=== PATIENT | female | born 1990 | race American Indian/Alaskan Native ===

== ENCOUNTER 2016-06-08 19:49 | Inpatient (IN) | payer OTHER ==
[2016-06-08 21:13] LABS: Basophils % (Auto) 0.7 % (0.0-1.8); Eosinophils % (Auto) 2.9 % (0.0-4.3); Hematocrit 33.8 % (30.3-42.9); Hemoglobin 10.9 gm/dl (10.1-14.3); Mean Corpuscular HGB Conc 32 % (30-34); Mean Corpuscular Hemoglobin 28 pg (28-32); Mean Corpuscular Volume 86 fl (79-97); Platelet Count 255 K/mm3 (140-440); Red Blood Count 3.94 M/mm3 (3.65-5.03); Red Cell Distribution Width 13.8 % (13.2-15.2); White Blood Count 5.7 K/mm3 (4.5-11.0)
[2016-06-08 21:15] LABS: Anion Gap 17 mmol/L; Blood Urea Nitrogen 14 mg/dL (7-17); Calcium 8.7 mg/dL (8.4-10.2); Carbon Dioxide 26 mmol/L (22-30); Chloride 85.1 mmol/L (98-107); Potassium 4.2 mmol/L (3.6-5.0); Sodium 124 mmol/L (137-145)
[2016-06-08 21:37] LABS: Bacteria,Urine 1+ /HPF (Negative); Bilirubin,Urine NEG (Negative); Blood,Urine MOD (Negative); Ketones,Urine NEG (Negative); Leukocyte Esterase,Urine LG (Negative); Mucus,Urine FEW /HPF; Nitrite,Urine NEG (Negative); Urobilinogen,Urine < 2.0 mg/dL (<2.0)
[2016-06-08 21:37] LABS: Glucose 800 mg/dL (65-100)
[2016-06-08 21:38] LABS: WBC,Urine > 182.0 /HPF (0.0-6.0)
[2016-06-08] MEDS ORDERED: ZOFRAN IV ONE (21:56)
[2016-06-08] MEDS ORDERED: D50W (25GM) IV PRN (21:56)
[2016-06-08] MEDS ORDERED: NACL 0.9% 1000 ML 1,000 ML IV ONE ×2 (21:56)
[2016-06-08] MEDS ORDERED: ROCEPHIN/NS 1 GM/50 ML 50 ML IV ONE (21:58)
[2016-06-08] MEDS ORDERED: PROTONIX IV ONE (22:09)
[2016-06-08] MEDS ORDERED: NORMODYNE IV ONE (22:09)
[2016-06-08] MEDS ORDERED: MORPHINE IV ONE (22:09)
--- NOTE | 2016-06-08 22:12 | Emergency Department Report ---
ED Abdominal Pain HPI - General Chief Complaint: Hyperglycemia Stated Complaint: ABD PAIN Time Seen by Provider: 06/08/16 21:54 Source: patient, EMS, old records reviewed (no previous ED visit) Mode of arrival: Wheelchair Limitations: No Limitations - History of Present Illness Initial Comments: 26-year-old female with a past medical history of asthma, diabetes, acid reflux and hypertension presents to the hospital complains of generalized body aches, nausea, vomiting, and diarrhea. Patient states she has been feeling sick since March and has had intermittent hospitalizations and does not have a primary care doctor. Patient states exacerbation of symptoms today. Vomiting times one which was mostly bloody. She complains of chronic diarrhea since March with greater than 10 episodes of loose stools daily. Patient denies melena or hematochezia. 10/10 generalized aching intermittent shakes without documented fever. Moderate epigastric pain described as sharp, constant, worse with palpation. No alleviating factors reported. Patient has increased urination, increased thirst, but denies dysuria. Patient has been compliant with her insulin but did not take her blood pressure medication this morning. Patient also complains of chronic bilateral lower extremity edema since March. Severity scale (0 -10): 10 - Related Data Home Medications Medication Instructions Recorded Confirmed Last Taken Gabapentin [Neurontin] 600 mg PO Q8H 06/08/16 06/08/16 Unknown Insulin Aspart [Novolog Flexpen] 30 unit SQ QAM 06/08/16 06/08/16 Unknown Insulin Lispro [HumaLOG VIAL] 100 unit SUB-Q QHS 06/08/16 06/08/16 Unknown Allergies Allergy/AdvReac Type Severity Reaction Status Date / Time vancomycin Allergy Unknown Verified 06/08/16 20:33 ED Review of Systems ROS: Stated complaint: ABD PAIN Other details as noted in HPI Comment: All other systems reviewed and negative Other: Constitutional: No fevers Eyes: No eye pain visual changes ENT: No ear pain or throat pain Neck: Denies pain Respiratory: Denies cough wheezing shortness of breath Cardiovascular: Denies chest pain, palpitations, syncope GI: As per HPI : As per HPI Musculoskeletal: Chronic leg edema Skin: Denies rash, lesions, erythema Neurologic: Denies headache, numbness, weakness Psychiatric: Denies suicidal ideation, hallucinations ED Past Medical Hx - Past Medical History Previous Medical History?: Yes Hx Hypertension: Yes Hx Diabetes: Yes Additional medical history: gatroparesis - Surgical History Past Surgical History?: No - Social History Smoking Status: Never Smoker Substance Use Type: None - Medications Home Medications: Home Medications Medication Instructions Recorded Confirmed Last Taken Type Gabapentin [Neurontin] 600 mg PO Q8H 06/08/16 06/08/16 Unknown History Insulin Aspart [Novolog Flexpen] 30 unit SQ QAM 06/08/16 06/08/16 Unknown History Insulin Lispro [HumaLOG VIAL] 100 unit SUB-Q QHS 06/08/16 06/08/16 Unknown History ED Physical Exam - General Limitations: No Limitations - Other Other exam information: General: No limitations, patient is alert in no acute distress Head exam: Atraumatic, normocephalic Eyes exam: Normal appearance him a nonicteric ENT: Dry mucous membrane Neck exam: Normal inspection, full range of motion, no meningismus nontender Respiratory exam: Clear to auscultation bilateral, no wheezes, rales, crackles Cardiovascular: Tachycardic regular rhythm Abdomen: Soft, nondistended, epigastric tenderness, with normal bowel sounds, no rebound, or guarding Extremity: Full range of motion normal inspection no deformity, bilateral 2+ lower extremity edema. Superficial skin ulceration to left great toe without warmth or erythema. No calf tenderness Back: Normal Inspection, full range of motion, no tenderness Neurologic: Alert, oriented x3, cranial nerves intact, no motor or sensory deficit Psychiatric: normal affect, normal mood Skin: Warm, dry, intact ED Course Vital Signs 06/08/16 06/08/16 06/08/16 20:00 21:44 21:58 Temperature 98.5 F Pulse Rate 110 H 109 H Respiratory 20 28 H 20 Rate Blood Pressure 158/105 Blood Pressure [Left] O2 Sat by Pulse 100 100 100 Oximetry 06/08/16 06/08/16 22:00 22:04 Temperature 98.2 F Pulse Rate 111 H 110 H Respiratory 13 18 Rate Blood Pressure 173/112 Blood Pressure 173/112 [Left] O2 Sat by Pulse 100 100 Oximetry - Reevaluation(s) Reevaluation #1: 06/08/16 22:17 Insulin bolus, normal saline, insulin drip, morphine, Zofran, and Protonix ordered in the ED ED Medical Decision Making - Lab Data Result diagrams: 06/08/16 20:46 06/08/16 20:53 Lab Results 06/08/16 06/08/16 06/08/16 Range/Units 20:00 20:46 20:46 WBC 5.7 (4.5-11.0) K/mm3 RBC 3.94 (3.65-5.03) M/mm3 Hgb 10.9 (10.1-14.3) gm/dl Hct 33.8 (30.3-42.9) % MCV 86 (79-97) fl MCH 28 (28-32) pg MCHC 32 (30-34) % RDW 13.8 (13.2-15.2) % Plt Count 255 (140-440) K/mm3 Lymph % (Auto) 25.3 (13.4-35.0) % [place] % (Auto) 9.5 H (0.0-7.3) % Eos % (Auto) 2.9 (0.0-4.3) % Baso % (Auto) 0.7 (0.0-1.8) % Lymph # 1.4 (1.2-5.4) K/mm3 [place] # 0.5 (0.0-0.8) K/mm3 Eos # 0.2 (0.0-0.4) K/mm3 Baso # 0.0 (0.0-0.1) K/mm3 Seg Neutrophils % 61.6 (40.0-70.0) % Seg Neutrophils # 3.5 (1.8-7.7) K/mm3 VBG pH (7.320-7.420) Sodium (137-145) mmol/L Potassium (3.6-5.0) mmol/L Chloride (98-107) mmol/L Carbon Dioxide (22-30) mmol/L Anion Gap mmol/L BUN (7-17) mg/dL Creatinine (0.7-1.2) mg/dL Estimated GFR ml/min BUN/Creatinine Ratio % Glucose (65-100) mg/dL POC Glucose > 500 H (70-105) Calcium (8.4-10.2) mg/dL HCG, Qual Negative (Negative) Urine Color (Yellow) Urine Turbidity (Clear) Urine pH (5.0-7.0) Ur Specific [place] (1.003-1.030) Urine Protein (Negative) mg/dL Urine Glucose (UA) (Negative) mg/dL Urine Ketones (Negative) mg/dL Urine Blood (Negative) Urine Nitrite (Negative) Urine Bilirubin (Negative) Urine Urobilinogen (<2.0) mg/dL Ur Leukocyte Esterase (Negative) Urine WBC (Auto) (0.0-6.0) /HPF Urine RBC (Auto) (0.0-6.0) /HPF Urine Bacteria (Auto) (Negative) /HPF Urine Mucus /HPF Urine Yeast (Budding) /HPF Ketones (0.2-2.8) mg/dL 06/08/16 06/08/16 06/08/16 Range/Units 20:53 20:53 21:18 WBC (4.5-11.0) K/mm3 RBC (3.65-5.03) M/mm3 Hgb (10.1-14.3) gm/dl Hct (30.3-42.9) % MCV (79-97) fl MCH (28-32) pg MCHC (30-34) % RDW (13.2-15.2) % Plt Count (140-440) K/mm3 Lymph % (Auto) (13.4-35.0) % [place] % (Auto) (0.0-7.3) % Eos % (Auto) (0.0-4.3) % Baso % (Auto) (0.0-1.8) % Lymph # (1.2-5.4) K/mm3 [place] # (0.0-0.8) K/mm3 Eos # (0.0-0.4) K/mm3 Baso # (0.0-0.1) K/mm3 Seg Neutrophils % (40.0-70.0) % Seg Neutrophils # (1.8-7.7) K/mm3 VBG pH 7.376 (7.320-7.420) Sodium 124 L (137-145) mmol/L Potassium 4.2 (3.6-5.0) mmol/L Chloride 85.1 L (98-107) mmol/L Carbon Dioxide 26 (22-30) mmol/L Anion Gap 17 mmol/L BUN 14 (7-17) mg/dL Creatinine 0.8 (0.7-1.2) mg/dL Estimated GFR > 60 ml/min BUN/Creatinine Ratio 17.50 % Glucose 800 H* (65-100) mg/dL POC Glucose (70-105) Calcium 8.7 (8.4-10.2) mg/dL HCG, Qual (Negative) Urine Color Yellow (Yellow) Urine Turbidity Cloudy (Clear) Urine pH 6.0 (5.0-7.0) Ur Specific [place] 1.024 (1.003-1.030) Urine Protein 100 mg/dl (Negative) mg/dL Urine Glucose (UA) >=500 (Negative) mg/dL Urine Ketones Neg (Negative) mg/dL Urine Blood Mod (Negative) Urine Nitrite Neg (Negative) Urine Bilirubin Neg (Negative) Urine Urobilinogen < 2.0 (<2.0) mg/dL Ur Leukocyte Esterase Lg (Negative) Urine WBC (Auto) > 182.0 H (0.0-6.0) /HPF Urine RBC (Auto) 25.0 (0.0-6.0) /HPF Urine Bacteria (Auto) 1+ (Negative) /HPF Urine Mucus Few /HPF Urine Yeast (Budding) 3+ /HPF Ketones 5.0 H (0.2-2.8) mg/dL - Medical Decision Making Patient has epigastric tenderness and positive UTI. Treated symptomatically and insulin initiated. Although not completely DKA glucose is poorly controlled and patient has poor by mouth tolerance at this time. We'll admit for further treatment. - Differential Diagnosis gastroparesis, gastritis, reflux, pancreatitis, hepatitis Critical Care Time: No Critical care attestation.: If time is entered above; I have spent that time in minutes in the direct care of this critically ill patient, excluding procedure time. ED Disposition Clinical Impression: Hyperglycemia due to type 1 diabetes mellitus, Gastroparesis, Edema of both legs UTI (urinary tract infection) Qualifiers: Urinary tract infection type: acute cystitis HTN (hypertension) Qualifiers: Hypertension type: essential hypertension Qualified Code(s): I10 - Essential ( primary) hypertension Vomiting Qualifiers: Vomiting type: hematemesis Nausea presence: with nausea Qualified Code(s): K92.0 - Hematemesis Disposition: OP ADMITTED IP TO THIS HOSP Is pt being admited?: Yes Condition: Stable Time of Disposition: 22:11 (Dr. Herndon/hosp)
[2016-06-08 22:19] LABS: Alanine Aminotransferase 14 units/L (7-56); Albumin 3.1 g/dL (3.9-5); Albumin/Globulin Ratio 0.7 %; Alkaline Phosphatase 93 units/L (35-129); Bilirubin,Total 0.2 mg/dL (0.1-1.2); Lipase 24 units/L (13-60); Total Protein 7.5 g/dL (6.3-8.2)
[2016-06-08 22:22] LABS: Bilirubin,Direct < 0.2 mg/dL (0-0.2)
[2016-06-08] MEDS: NovoLIN R 100 UNITS in NACL 0.9% 99 ML IV SCH (23:00)
[2016-06-09] MEDS ORDERED: LASIX IV ONE (00:02)
[2016-06-09] MEDS ORDERED: APRESOLINE IV PRN (00:03)
[2016-06-09] MEDS ORDERED: LASIX ONE (00:51)
--- NOTE | 2016-06-09 00:54 | History and Physical Report ---
History of Present Illness Date of examination: 06/09/16 Date of admission: 06/09/16 00:03 History of present illness: 26-year-old woman with a history of hypertension, diabetes, gastroparesis, asthma, GERD noncompliant with medication comes emergency room with complaints of diffuse body aches, nausea vomiting. She stated that her body is swollen 2 months, also complaining of shortness of breath, dyspnea on exertion and PND. Also complaining of increase in urination, thirst and dysuria. Patient states she takes her antihypertensive once a week, no clear reason verbalized. She ran out of her diabetic medications times a few days, restarted this morning Patient denies chest pain, palpitation, cough, abdominal pain, hematochezia, frequency, focal weakness, dysarthria, fever chills, polydipsia polyuria, hot or cold intolerance, easy bruisability, or rash or bleeding from mucosal membrane, rhinorrhea, epistaxis, earache, tinnitus, blurry vision, eye discharge , anxiety, depression. Other review of systems negative PAST SURGICAL HISTORY: None SOCIAL HISTORY: Denies alcohol, tobacco, drugs FAMILY HISTORY: Diabetes Medications and Allergies Allergies Allergy/AdvReac Type Severity Reaction Status Date / Time vancomycin Allergy Unknown Verified 06/08/16 20:33 Home Medications Medication Instructions Recorded Confirmed Last Taken Type Gabapentin [Neurontin] 600 mg PO Q8H 06/08/16 06/08/16 Unknown History Insulin Aspart [Novolog Flexpen] 30 unit SQ QAM 06/08/16 06/08/16 Unknown History Insulin Lispro [HumaLOG VIAL] 100 unit SUB-Q QHS 06/08/16 06/08/16 Unknown History Active Meds: Active Medications Dextrose (D50w (25gm)) 0 ml IV PRN PRN PRN Reason: Hypoglycemia Hydralazine HCl (Apresoline) 5 mg IV Q6H PRN PRN Reason: Hypertension Insulin Human Regular 100 (units/ Sodium Chloride) 100 mls @ 1 mls/hr IV TITR DEANNE; 1 UNITS/HR PRN Reason: Protocol Last Titration: 06/09/16 00:05 Dose: 8 units/hr Exam - Physical Exam Narrative exam: Gen. appearance: Patient lying in bed, no apparent distress HEENT: Normocephalic, atraumatic, pupils equally round and reactive to light, extraocular movement intact, and no sclericterus,. No JVD or thyromegaly or nodule,neck supple, no carotid bruit ,mucous membranes moist, no exudate or erythema Heart: S1, S2, regular rate and rhythm Lungs: Mild crackles bilaterally, breathing comfortable Abdomen: Positive bowel sounds, nontender, nondistended, no organomegaly Extremity: 2+edema, no cyanosis, clubbing Skin: No rash, nodules, warm, dry Neuro: Oriented 3, cranial nerves II-12 intact, speech is fluent, motor and sensory intact - Constitutional Vitals: Temp Pulse Resp BP Pulse Ox 98.6 F 111 H 18 180/113 100 06/08/16 23:36 06/08/16 22:50 06/08/16 22:04 06/08/16 22:50 06/08/16 22:04 Results - Labs CBC & Chem 7: 06/08/16 20:46 06/09/16 23:51 - Imaging and Cardiology EKG: image reviewed (nsr, 80) Assessment and Plan HONK Edema, shortness of breath, rule out CHF Hypertension uncontrolled GERD Asthma Gastroparesis Admit to medicine Continue insulin drip, check chemistry and fingersticks, consult critical care Hold IV fluids, given IV Lasix, check echo Start IV hydralazine as needed for blood pressure control Check hemoglobin A1c, start DVT prophylaxis
[2016-06-09 00:55] LABS: BUN/Creatinine Ratio 18.75; Blood Urea Nitrogen 15 mg/dL (7-17); Calcium 8.8 mg/dL (8.4-10.2); Carbon Dioxide 24 mmol/L (22-30); Chloride 94.2 mmol/L (98-107); Glucose 475 mg/dL (65-100); Magnesium 1.8 mg/dL (1.7-2.3); Potassium 3.2 mmol/L (3.6-5.0); Sodium 133 mmol/L (137-145)
[2016-06-09 01:32] LABS: Anion Gap 18 mmol/L
[2016-06-09] MEDS ORDERED: ZOFRAN IV PRN (01:40)
[2016-06-09] MEDS ORDERED: PERCOCET 5/325 PO PRN (01:40)
[2016-06-09] MEDS ORDERED: ALUM-MAG HYDROX-SIMETH 200-200-20MG/5ML PO PRN (01:40)
[2016-06-09] MEDS ORDERED: TYLENOL PO PRN (01:40)
[2016-06-09] MEDS ORDERED: DULCOLAX PR PRN (01:40)
[2016-06-09] MEDS ORDERED: MILK OF MAGNESIA PO PRN (01:40)
[2016-06-09] MEDS ORDERED: D50W (25GM) IV PRN (01:40)
[2016-06-09] MEDS ORDERED: ROCEPHIN/NS 1 GM/50 ML 50 ML IV ONE (02:00)
--- NOTE | 2016-06-09 02:05 | Admit Criteria Form ---
Admission Criteria Documentation: DIABETES Clinical Indications for Admission to Inpatient Care (Place 'X' for any and all applicable criteria): Admission is indicated by presence of ALL (if I & II) or ANY ONE (if III or IV) of the following (1)(2)(3)(4): [ ]I. Diabetes is uncontrolled as indicated by ANY ONE of the following: [ ]a) Diabetic ketoacidosis as indicated by ALL of the following (8): [ ]i) Hyperglycemia (eg, plasma glucose greater than 200 mg/ dL (11.1 mmol/L)) [ ]ii) Acidosis (eg, arterial pH less than 7.30, serum bicarbonate level less than 15 mEq/L (mmol/L)) [ ]iii) Moderate ketonuria or ketonemia [ ]b) Hyperglycemic hyperosmolar state as indicated by ALL of the following(9)(10): [ ]i) Neurologic dysfunction (eg, stupor, coma, hemiparesis , seizure)(13) [ ]ii) Plasma glucose greater than 600 mg/dL (33.3 mmol/L) [ ]iii) Serum osmolality greater than 320 mOsm/kg (mmol/kg) [ ]c) Severe signs or symptoms secondary to hyperglycemia indicated by ANY ONE of the following: [ ]i) Altered mental status(10) [ ]ii) Significant hypovolemia or dehydration [ ]iii) Intractable nausea or vomiting [ ]iv) Unexplained fever or severe infection [ ]v) Severe electrolyte abnormality (eg, hypokalemia, hyperkalemia, hypernatremia) [ ]II. Management at other levels of care (Also use Diabetes: Observation Care as appropriate) is not feasible because of ANY ONE of the following: [ ]a) Condition was not adequately corrected with treatment at other levels of care. [ ]b) Treatment at other levels of care is not appropriate because of condition severity (eg, hyperosmolar coma). [X ]III. Contraindications and/or Inappropriate clinical situations for Observational Care in patients with Diabetes, when ANY ONE of the following is required: [ ]a) Patient require specific diagnostic workup or therapeutic intervention 22 [ X]b) Patient with abnormal vital signs or altered mental status 23 [ ]IV. General contraindications and/or Inappropriate clinical situations for Observational Care in patients with Diabetes, when ANY ONE of the following is required: [ ]a) Prediction of prolongation of LOS based on ANY ONE of the following may be considered as a contraindication for observational care 2, 3, 4, 5, 6, 7, 8, 9, 10, 11 [ ]i) Age > 65 yrs. [ ]ii) Patient arriving by ambulance [ ]iii) Patient with high acuity [ ]iv) Patient requiring vital sign monitoring [ ]v) Patient on IV medication [ ]b) Systolic blood pressures 180mmHg 3,12 [ ]c) Patient with altered mental status including delirium and other alteration of consciousness, (3) [ ]d) Patient whose discharge disposition will be to a usp home or rehabilitation home should not be managed in Emergency Department Observation Unit. CMS rule requires 3 days hospital stay before such placement.3,13 [ ]e) Patient with failure to thrive due to broad array of etiologies 3,16,17 [ ]f) Inability to ambulate 3,14 Extended stay beyond goal length of stay may be needed for(3)(20): [ ]a) Treatment of precipitating causes [ ]b) Development of hypoglycemia [ ]c) Complications of treatment [ ]d) Complications of decompensated diabetes (eg, acute gastric dilatation, persistent metabolic or neurologic derangement) [ ]e) Active Comorbidities [ ]f) Older patients( 65 years or older) The original its learning content created by its learning has been revised. The portions of the content which have been revised are identified through the use of italic text or in bold,and [facility] has neither reviewed nor approved the modified material. All other unmodified content is copyright [email or web address]. Please see references footnoted in the original [email or web address] edition 2016
[2016-06-09] MEDS: NovoLIN R 100 UNITS in NACL 0.9% 99 ML IV SCH ×4 (03:17→06:17)
[2016-06-09 03:20] LABS: BUN/Creatinine Ratio 18.75; Blood Urea Nitrogen 15 mg/dL (7-17); Calcium 8.9 mg/dL (8.4-10.2); Carbon Dioxide 27 mmol/L (22-30); Glucose 286 mg/dL (65-100); Potassium 3.3 mmol/L (3.6-5.0); Sodium 135 mmol/L (137-145)
[2016-06-09 03:30] LABS: Anion Gap 15 mmol/L
[2016-06-09] MEDS ORDERED: K-DUR PO ONE (04:28)
[2016-06-09] MEDS ORDERED: NovoLIN R 100 UNITS in NACL 0.9% 99 ML IV SCH (05:00)
--- NOTE | 2016-06-09 08:19 | Progress Note ---
Assessment and Plan Assessment and plan: --Hyperosmolar diabetic ketosis; Due to Noncompliance, on insulin drip blood sugars are reasonable levels today Start ADA diet as tolerated DC insulin drip, start long-acting insulin at lower dose and increase as needed Patient's hemoglobin A1c was 19 --Hypokalemia; Replenish per protocol and monitor levels check magnesium --Generalized edema Low-sodium diet, diuretics as needed Echocardiogram for left ventricle function and ejection fraction --Medical noncompliance; Counseling done patient strongly advised to adhere to treatment plan Diabetic education Case management for assistance with medications --DVT prophylaxis; With Lovenox --DC planning with case management Possible home with home health for diabetic education and disease management in 1-2 days if stable Plan of care discussed with the patient as well as the nurse Medical records reviewed Disposition can be transferred to medical floor once able to tolerate oral diet Care time 32 minutes The high probability of a clinically significant, sudden or life threatening deterioration of the [endocrine, electrolyte and GI] system(s) required my full and direct attention, intervention and personal management. The aggregate critical care time was [32] minutes. This time is in addition to time spent performing reported procedures but includes the following: [x] Data Review and interpretation [x] Patient assessment and monitoring of vital signs [x] Documentation [x] Medication orders and management History Interval history: Patient seen and evaluated in ICU, medical records reviewed Admitted with hyperglycemia, hyperosmolar state, on insulin drip Sugars are reasonable levels patient feels better Denies nausea vomiting Complains of generalized weakness, has some intentional tremors on the right hand Denies history of tremors in the past Alert awake oriented 3 not in acute distress Hospitalist Physical - Constitutional Vitals: Temp Pulse Resp BP Pulse Ox 98.0 F 106 H 13 136/82 100 06/09/16 03:13 06/09/16 07:00 06/09/16 07:00 06/09/16 07:00 06/09/16 07:00 General appearance: Present: no acute distress, well-nourished, other (some intentional tremors on the right hand) - EENT Eyes: Present: PERRL, EOM intact - Neck Neck: Present: supple, normal ROM - Respiratory Respiratory effort: normal Respiratory: bilateral: diminished, negative: rales, rhonchi, wheezing - Cardiovascular Rhythm: regular Heart Sounds: Present: S1 & S2 - Extremities Extremities: no ischemia, pulses intact, pulses symmetrical Peripheral Pulses: within normal limits - Abdominal General gastrointestinal: soft, non-tender, non-distended, normal bowel sounds - Integumentary Integumentary: Present: clear, warm - Psychiatric Psychiatric: appropriate mood/affect, cooperative - Neurologic Neurologic: CNII-XII intact, moves all extremities Results - Labs CBC & Chem 7: 06/08/16 20:46 06/09/16 14:33 Labs: Laboratory Last Values WBC 5.7 K/mm3 (4.5-11.0) 06/08/16 20:46 RBC 3.94 M/mm3 (3.65-5.03) 06/08/16 20:46 Hgb 10.9 gm/dl (10.1-14.3) 06/08/16 20:46 Hct 33.8 % (30.3-42.9) 06/08/16 20:46 MCV 86 fl (79-97) 06/08/16 20:46 MCH 28 pg (28-32) 06/08/16 20:46 MCHC 32 % (30-34) 06/08/16 20:46 RDW 13.8 % (13.2-15.2) 06/08/16 20:46 Plt Count 255 K/mm3 (140-440) 06/08/16 20:46 Lymph % (Auto) 25.3 % (13.4-35.0) 06/08/16 20:46 [place] % (Auto) 9.5 % (0.0-7.3) H 06/08/16 20:46 Eos % (Auto) 2.9 % (0.0-4.3) 06/08/16 20:46 Baso % (Auto) 0.7 % (0.0-1.8) 06/08/16 20:46 Lymph # 1.4 K/mm3 (1.2-5.4) 06/08/16 20:46 [place] # 0.5 K/mm3 (0.0-0.8) 06/08/16 20:46 Eos # 0.2 K/mm3 (0.0-0.4) 06/08/16 20:46 Baso # 0.0 K/mm3 (0.0-0.1) 06/08/16 20:46 Seg Neutrophils % 61.6 % (40.0-70.0) 06/08/16 20:46 Seg Neutrophils # 3.5 K/mm3 (1.8-7.7) 06/08/16 20:46 VBG pH 7.376 (7.320-7.420) 06/08/16 20:53 Sodium 135 mmol/L (137-145) L 06/09/16 02:53 Potassium 3.3 mmol/L (3.6-5.0) L 06/09/16 02:53 Chloride 96.0 mmol/L (98-107) L 06/09/16 02:53 Carbon Dioxide 27 mmol/L (22-30) 06/09/16 02:53 Anion Gap 15 mmol/L 06/09/16 02:53 BUN 15 mg/dL (7-17) 06/09/16 02:53 Creatinine 0.8 mg/dL (0.7-1.2) 06/09/16 02:53 Estimated GFR > 60 ml/min 06/09/16 02:53 BUN/Creatinine Ratio 18.75 % 06/09/16 02:53 Glucose 286 mg/dL (65-100) H 06/09/16 02:53 POC Glucose 91 (70-105) 06/09/16 07:10 Hemoglobin A1c 19.1 % (4-6) H 06/09/16 02:53 Calcium 8.9 mg/dL (8.4-10.2) 06/09/16 02:53 Phosphorus 3.0 mg/dL (2.5-4.5) 06/09/16 02:53 Magnesium 2.0 mg/dL (1.7-2.3) 06/09/16 02:53 Total Bilirubin 0.2 mg/dL (0.1-1.2) 06/08/16 20:53 Direct Bilirubin < 0.2 mg/dL (0-0.2) 06/08/16 20:53 Indirect Bilirubin 0.0 mg/dL 06/08/16 20:53 AST 12 units/L (5-40) 06/08/16 20:53 ALT 14 units/L (7-56) 06/08/16 20:53 Alkaline Phosphatase 93 units/L (35-129) 06/08/16 20:53 Total Protein 7.5 g/dL (6.3-8.2) 06/08/16 20:53 Albumin 3.1 g/dL (3.9-5) L 06/08/16 20:53 Albumin/Globulin Ratio 0.7 % 06/08/16 20:53 Lipase 24 units/L (13-60) 06/08/16 20:53 HCG, Qual Negative (Negative) 06/08/16 20:46 Urine Color Yellow (Yellow) 06/08/16 21:18 Urine Turbidity Cloudy (Clear) 06/08/16 21:18 Urine pH 6.0 (5.0-7.0) 06/08/16 21:18 Ur Specific [place] 1.024 (1.003-1.030) 06/08/16 21:18 Urine Protein 100 mg/dl mg/dL (Negative) 06/08/16 21:18 Urine Glucose (UA) >=500 mg/dL (Negative) 06/08/16 21:18 Urine Ketones Neg mg/dL (Negative) 06/08/16 21:18 Urine Blood Mod (Negative) 06/08/16 21:18 Urine Nitrite Neg (Negative) 06/08/16 21:18 Urine Bilirubin Neg (Negative) 06/08/16 21:18 Urine Urobilinogen < 2.0 mg/dL (<2.0) 06/08/16 21:18 Ur Leukocyte Esterase Lg (Negative) 06/08/16 21:18 Urine WBC (Auto) > 182.0 /HPF (0.0-6.0) H 06/08/16 21:18 Urine RBC (Auto) 25.0 /HPF (0.0-6.0) 06/08/16 21:18 Urine Bacteria (Auto) 1+ /HPF (Negative) 06/08/16 21:18 Urine Mucus Few /HPF 06/08/16 21:18 Urine Yeast (Budding) 3+ /HPF 06/08/16 21:18 Ketones 5.0 mg/dL (0.2-2.8) H 06/08/16 20:53
[2016-06-09] MEDS: LOVENOX SUB-Q SCH (09:43)
[2016-06-09] MEDS: NOVOLOG SUB-Q SCH ×4 (09:43→22:04)
[2016-06-09] MEDS: ROCEPHIN/NS 1 GM/50 ML 50 ML IV SCH (09:44)
[2016-06-09] MEDS: PEPCID PO SCH ×2 (09:44→22:06)
--- NOTE | 2016-06-09 14:00 | Consultation ---
History of Present Illness Consult date: 06/09/16 Requesting physician: RAFFAELE CHAUDHRY Reason for consult: other (HONKK; Uncontrolled Diabetes) History of present illness: PULMONARY/CCM CONSULT NOTE Requesting ICU admission due to need for IV insulin therapy A&P: - Admit to ICU on DKA protocol re: IV insulin for uncontrolled DM Medications and Allergies Allergies Allergy/AdvReac Type Severity Reaction Status Date / Time vancomycin Allergy Unknown Verified 06/08/16 20:33 Home Medications Medication Instructions Recorded Confirmed Last Taken Type ALBUTEROL Inhaler [ProAir HFA 2 puff IH QID PRN #1 inhalation 06/11/16 Unknown Rx Inhaler] Insulin Aspart [NovoLOG Flexpen] 3 unit SQ QAC 30 Days 06/11/16 Unknown Rx Insulin NPH/Regular [NovoLIN 70/30] 15 unit SUB-Q BIDDIAB 30 Days 06/11/16 Unknown Rx Levofloxacin [Levaquin] 750 mg PO QDAY #7 tablet 06/11/16 Unknown Rx Active Meds: Active Medications Acetaminophen (Tylenol) 650 mg PO Q6H PRN PRN Reason: Pain Al Hydrox/Mg Hydrox/Simethicone (Alum-Mag Hydrox-Simeth [id number]/5ml) 30 ml PO Q4H PRN PRN Reason: Indigestion Bisacodyl (Dulcolax) 10 mg WA QDAY PRN PRN Reason: constipation unrelieved by MOM Enoxaparin Sodium (Lovenox) 40 mg SUB-Q QDAY [facility] Last Admin: 06/09/16 09:43 Dose: 40 mg Famotidine (Pepcid) 20 mg PO BID [facility] Last Admin: 06/09/16 09:44 Dose: 20 mg Hydralazine HCl (Apresoline) 5 mg IV Q6H PRN PRN Reason: Hypertension Ceftriaxone Sodium (Rocephin/Ns 1 Gm/50 Ml) 50 mls @ 100 mls/hr IV Q24HR [facility] Last Admin: 06/09/16 09:44 Dose: 100 mls/hr Insulin Aspart (Novolog) 0 units SUB-Q ACHS DEANNE PRN Reason: Protocol Last Admin: 06/09/16 12:34 Dose: 3 units Insulin Human Isoph/Insulin Regular (Novolin 70/30) 8 unit SUB-Q BIDDIAB [facility] Last Admin: 06/09/16 10:19 Dose: 8 unit Magnesium Hydroxide (Milk Of Magnesia) 30 ml PO Q4H PRN PRN Reason: Constipation Ondansetron HCl (Zofran) 4 mg IV Q4H PRN PRN Reason: N/V unrelieved by Mariusz Dupree Admin: 06/09/16 07:14 Dose: 4 mg Oxycodone/Acetaminophen (Percocet 5/325) 1 tab PO Q6H PRN PRN Reason: Pain, Moderate (4-6) Physical Examination Vital signs: Vital Signs Temp Pulse Resp BP Pulse Ox 98.5 F 110 H 20 158/105 100 06/08/16 20:00 06/08/16 20:00 06/08/16 20:00 06/08/16 20:00 06/08/16 20:00 Results - Laboratory Findings CBC and BMP: 06/08/16 20:46 06/10/16 06:38 Abnormal lab findings: Abnormal Labs 06/09/16 06/09/16 06/09/16 00:06 00:23 01:11 Sodium 133 L D Potassium 3.2 L D Chloride 94.2 L Glucose 475 H POC Glucose 486 H 384 H Hemoglobin A1c 06/09/16 06/09/16 06/09/16 02:53 02:53 03:08 Sodium 135 L Potassium 3.3 L Chloride 96.0 L Glucose 286 H POC Glucose 286 H Hemoglobin A1c 19.1 H 06/09/16 06/09/16 06/09/16 04:14 05:12 06:15 Sodium Potassium Chloride Glucose POC Glucose 224 H 157 H 119 H Hemoglobin A1c 06/09/16 06/09/16 08:19 11:56 Sodium Potassium Chloride Glucose POC Glucose 163 H 225 H Hemoglobin A1c
[2016-06-09 14:57] LABS: BUN/Creatinine Ratio 22.85; Blood Urea Nitrogen 16 mg/dL (7-17); Calcium 8.6 mg/dL (8.4-10.2); Carbon Dioxide 28 mmol/L (22-30); Chloride 97.2 mmol/L (98-107); Glucose 138 mg/dL (65-100); Potassium 3.8 mmol/L (3.6-5.0); Sodium 134 mmol/L (137-145)
[2016-06-09 15:00] LABS: Anion Gap 13 mmol/L
[2016-06-09 19:43] LABS: BUN/Creatinine Ratio 18.75; Blood Urea Nitrogen 15 mg/dL (7-17); Carbon Dioxide 28 mmol/L (22-30); Chloride 97.5 mmol/L (98-107); Glucose 81 mg/dL (65-100); Sodium 136 mmol/L (137-145)
[2016-06-09 19:49] LABS: Anion Gap 15 mmol/L
[2016-06-10 00:22] LABS: BUN/Creatinine Ratio 24.28; Blood Urea Nitrogen 17 mg/dL (7-17); Calcium 8.4 mg/dL (8.4-10.2); Carbon Dioxide 29 mmol/L (22-30); Chloride 96.9 mmol/L (98-107); Glucose 183 mg/dL (65-100); Potassium 3.7 mmol/L (3.6-5.0); Sodium 134 mmol/L (137-145)
[2016-06-10 00:25] LABS: Anion Gap 12 mmol/L
[2016-06-10] MEDS: NOVOLOG SUB-Q SCH ×4 (07:01→23:36)
[2016-06-10 07:13] LABS: BUN/Creatinine Ratio 24.28; Blood Urea Nitrogen 17 mg/dL (7-17); Calcium 8.3 mg/dL (8.4-10.2); Carbon Dioxide 25 mmol/L (22-30); Chloride 100.5 mmol/L (98-107); Glucose 331 mg/dL (65-100); Potassium 4.1 mmol/L (3.6-5.0); Sodium 137 mmol/L (137-145)
[2016-06-10 07:23] LABS: Anion Gap 16 mmol/L
--- NOTE | 2016-06-10 08:46 | Echocardiography Report ---
Transthoracic Echocardiogram Indication: Edema BP: 121/75 Conclusions *Global left ventricular systolic function is normal. *The estimated ejection fraction is 55-60%. *Abnormal left ventricular diastolic filling is observed, consistent with impaired relaxation. *There is trace of mitral regurgitation. *There is no evidence of aortic regurgitation. *There is mild tricuspid regurgitation. *The right ventricular systolic pressure is calculated at 23 mmHg. *There is no evidence of pulmonic regurgitation. Findings Left Ventricle: The left ventricular chamber size is normal. Global left ventricular wall motion and contractility are within normal limits. Global left ventricular systolic function is normal. The estimated ejection fraction is 55-60%. Abnormal left ventricular diastolic filling is observed, consistent with impaired relaxation. Left Atrium: The left atrium is normal in size with no visual thrombus identified. Right Ventricle: The right ventricular cavity size is normal. The right ventricular global systolic function is normal. Right Atrium: The right atrium appears normal. The interatrial septum appears normal. Aortic Valve: The aortic valve structure is normal. There is no evidence of aortic regurgitation. There is no evidence of aortic stenosis. Mitral Valve: The mitral valve leaflets are mildly thickened. There is trace of mitral regurgitation. There is no evidence of mitral stenosis. Tricuspid Valve: The tricuspid valve leaflets are normal. There is mild tricuspid regurgitation. The right ventricular systolic pressure is calculated at 23 mmHg. There is no tricuspid stenosis. Pulmonic Valve: The pulmonic valve appears normal. There is no evidence of pulmonic regurgitation. There is no pulmonic stenosis. Pericardium: There is no pericardial effusion. Aorta: There is no dilatation of the ascending aorta. Venous: The inferior vena cava appears normal in size. Measurements Chambers MM Name Value Normal Range Ao root diameter (MM) 3 cm (2 - 3.7) LA dimension (AP) MM 2.3 cm (1.9 - 4) LA:Ao ratio (MM) 0.77 ratio - AV cusp separation (MM) 1.3 cm (1.5 - 2.6) Chambers 2D Name Value Normal Range IVSd (2D) 0.96 cm (0.6 - 1.1) LVPWd (2D) 0.92 cm (0.6 - 1.1) IVS:LVPW ratio (2D) 1.04 ratio - LVIDd (2D) 4.01 cm (3.7 - 5.6) LVIDs (2D) 2.7 cm (2 - 3.8) LV FS (Teichholz) (2D) 32.7 % - LV FS (cube) (2D) 32.7 % - EF Teichholz (2D) 61.6 % - LA dimension (AP) 2D 2.4 cm (1.9 - 4) Volumes/Mass Name Value Normal Range LA ESV SP 4CH (MOD) 22 ml - LA ESV SP 2CH (MOD) 27 ml - LA ESV BP (MOD) 27 ml - LA ESV BP (MOD) index 17.6 ml/m2 - LV EDV SP 4CH (MOD) 47 ml - LV ESV SP 4CH (MOD) 16 ml - EF SP 4CH (MOD) 66 % - LV EDV SP 2CH (MOD) 34 ml - LV ESV SP 2CH (MOD) 12 ml - EF SP 2CH (MOD) 65 % - LV EDV BP 40 ml - LV ESV BP 14 ml - BP EF (MOD) 65 % - Diastolic/Systolic Function Name Value Normal Range MV E-wave Vmax 0.8 m/sec - MV deceleration time 162 msec - MV A-wave Vmax 1 m/sec - MV E:A ratio 0.8 ratio - LV septal e' Vmax 0.11 m/sec - LV lateral e' Vmax 0.11 m/sec - LV E:e' septal ratio 7.3 ratio - LV E:e' lateral ratio 7.4 ratio - Aortic Valve Name Value Normal Range AV VTI 25.9 cm - AV mean gradient 7 mmHg - LVOT diameter 2 cm - LVOT VTI 16.2 cm - LVOT mean gradient 2 mmHg - SV LVOT 51 ml - THERON (continuity VTI) 1.96 cm2 - Mitral Valve Name Value Normal Range MV PHT 50 msec - MVA (PHT) 4.4 cm2 - Tricuspid Valve Name Value Normal Range TR Vmax 2.26 m/sec - TR peak gradient 20 mmHg - RAP 3 mmHg - RVSP 23 mmHg - Pulmonic Valve/Qp:Qs Name Value Normal Range PV Vmax 0.88 m/sec - PV peak gradient 3 mmHg - PV acceleration time 116 msec -
[2016-06-10] MEDS: ROCEPHIN/NS 1 GM/50 ML 50 ML IV SCH (09:12)
[2016-06-10] MEDS: LOVENOX SUB-Q SCH (09:13)
[2016-06-10] MEDS: PEPCID PO SCH ×2 (09:13→23:03)
--- NOTE | 2016-06-10 15:54 | Progress Note ---
Assessment and Plan Assessment and plan: --Hyperosmolar diabetic ketosis; Is notable blood sugars off insulin drip Continue Novolin 70/30 Accu-Chek sliding scale coverageed Patient's hemoglobin A1c was 19 --Hypokalemia; corrected --Generalized edema; improved Low-sodium diet, diuretics as needed, normal relaxation of the left ventricle Echocardiogram and ejection fraction normal --Medical noncompliance; Counseling done patient strongly advised to adhere to treatment plan Diabetic education Case management for assistance with medications --DVT prophylaxis; With Lovenox --DC planning with case management Possible home tomorrow with diabetic education , home health nurse for disease management Plan of care discussed with the patient , his management as well as the nurse Medical records reviewed History Interval history: Sincerely and evaluated medical records reviewed He is off insulin drip, on 7030 Novolin Labile blood sugars Patient is asymptomatic, alert awake oriented 3 No new complaints Vital signs reviewed, stable Hospitalist Physical - Constitutional Vitals: Temp Pulse Resp BP Pulse Ox 98.6 F 105 H 18 135/76 98 06/10/16 07:50 06/10/16 07:50 06/10/16 07:50 06/10/16 07:50 06/10/16 08:32 General appearance: Present: no acute distress, well-nourished, other (some intentional tremors on the right hand) - EENT Eyes: Present: PERRL, EOM intact - Neck Neck: Present: supple, normal ROM - Respiratory Respiratory effort: normal Respiratory: bilateral: diminished, negative: rales, rhonchi, wheezing - Cardiovascular Rhythm: regular Heart Sounds: Present: S1 & S2 - Extremities Extremities: no ischemia, pulses intact, pulses symmetrical Peripheral Pulses: within normal limits - Abdominal General gastrointestinal: soft, non-tender, non-distended, normal bowel sounds - Integumentary Integumentary: Present: clear, warm - Psychiatric Psychiatric: appropriate mood/affect, cooperative - Neurologic Neurologic: CNII-XII intact, moves all extremities Results - Labs CBC & Chem 7: 06/08/16 20:46 06/10/16 06:38 Labs: Laboratory Last Values WBC 5.7 K/mm3 (4.5-11.0) 06/08/16 20:46 RBC 3.94 M/mm3 (3.65-5.03) 06/08/16 20:46 Hgb 10.9 gm/dl (10.1-14.3) 06/08/16 20:46 Hct 33.8 % (30.3-42.9) 06/08/16 20:46 MCV 86 fl (79-97) 06/08/16 20:46 MCH 28 pg (28-32) 06/08/16 20:46 MCHC 32 % (30-34) 06/08/16 20:46 RDW 13.8 % (13.2-15.2) 06/08/16 20:46 Plt Count 255 K/mm3 (140-440) 06/08/16 20:46 Lymph % (Auto) 25.3 % (13.4-35.0) 06/08/16 20:46 Irwin % (Auto) 9.5 % (0.0-7.3) H 06/08/16 20:46 Eos % (Auto) 2.9 % (0.0-4.3) 06/08/16 20:46 Baso % (Auto) 0.7 % (0.0-1.8) 06/08/16 20:46 Lymph # 1.4 K/mm3 (1.2-5.4) 06/08/16 20:46 Irwin # 0.5 K/mm3 (0.0-0.8) 06/08/16 20:46 Eos # 0.2 K/mm3 (0.0-0.4) 06/08/16 20:46 Baso # 0.0 K/mm3 (0.0-0.1) 06/08/16 20:46 Seg Neutrophils % 61.6 % (40.0-70.0) 06/08/16 20:46 Seg Neutrophils # 3.5 K/mm3 (1.8-7.7) 06/08/16 20:46 VBG pH 7.376 (7.320-7.420) 06/08/16 20:53 Sodium 137 mmol/L (137-145) 06/10/16 06:38 Potassium 4.1 mmol/L (3.6-5.0) 06/10/16 06:38 Chloride 100.5 mmol/L (98-107) 06/10/16 06:38 Carbon Dioxide 25 mmol/L (22-30) 06/10/16 06:38 Anion Gap 16 mmol/L 06/10/16 06:38 BUN 17 mg/dL (7-17) 06/10/16 06:38 Creatinine 0.7 mg/dL (0.7-1.2) 06/10/16 06:38 Estimated GFR > 60 ml/min 06/10/16 06:38 BUN/Creatinine Ratio 24.28 % 06/10/16 06:38 Glucose 331 mg/dL (65-100) H 06/10/16 06:38 POC Glucose 313 (70-105) H 06/10/16 05:51 Hemoglobin A1c 19.1 % (4-6) H 06/09/16 02:53 Calcium 8.3 mg/dL (8.4-10.2) L 06/10/16 06:38 Phosphorus 4.0 mg/dL (2.5-4.5) D 06/10/16 06:38 Magnesium 2.0 mg/dL (1.7-2.3) 06/10/16 06:38 Total Bilirubin 0.2 mg/dL (0.1-1.2) 06/08/16 20:53 Direct Bilirubin < 0.2 mg/dL (0-0.2) 06/08/16 20:53 Indirect Bilirubin 0.0 mg/dL 06/08/16 20:53 AST 12 units/L (5-40) 06/08/16 20:53 ALT 14 units/L (7-56) 06/08/16 20:53 Alkaline Phosphatase 93 units/L (35-129) 06/08/16 20:53 Total Protein 7.5 g/dL (6.3-8.2) 06/08/16 20:53 Albumin 3.1 g/dL (3.9-5) L 06/08/16 20:53 Albumin/Globulin Ratio 0.7 % 06/08/16 20:53 Lipase 24 units/L (13-60) 06/08/16 20:53 HCG, Qual Negative (Negative) 06/08/16 20:46 Urine Color Yellow (Yellow) 06/08/16 21:18 Urine Turbidity Cloudy (Clear) 06/08/16 21:18 Urine pH 6.0 (5.0-7.0) 06/08/16 21:18 Ur Specific [place] 1.024 (1.003-1.030) 06/08/16 21:18 Urine Protein 100 mg/dl mg/dL (Negative) 06/08/16 21:18 Urine Glucose (UA) >=500 mg/dL (Negative) 06/08/16 21:18 Urine Ketones Neg mg/dL (Negative) 06/08/16 21:18 Urine Blood Mod (Negative) 06/08/16 21:18 Urine Nitrite Neg (Negative) 06/08/16 21:18 Urine Bilirubin Neg (Negative) 06/08/16 21:18 Urine Urobilinogen < 2.0 mg/dL (<2.0) 06/08/16 21:18 Ur Leukocyte Esterase Lg (Negative) 06/08/16 21:18 Urine WBC (Auto) > 182.0 /HPF (0.0-6.0) H 06/08/16 21:18 Urine RBC (Auto) 25.0 /HPF (0.0-6.0) 06/08/16 21:18 Urine Bacteria (Auto) 1+ /HPF (Negative) 06/08/16 21:18 Urine Mucus Few /HPF 06/08/16 21:18 Urine Yeast (Budding) 3+ /HPF 06/08/16 21:18 Ketones 5.0 mg/dL (0.2-2.8) H 06/08/16 20:53
--- NOTE | 2016-06-10 22:08 | Progress Note ---
Assessment and Plan - Patient Problems (1) Hyperglycemia due to type 1 diabetes mellitus Current Visit: Yes Status: Acute Plan to address problem: Improved. Patient is on Insulin. Management as per primary care. (2) Edema of both legs Current Visit: Yes Status: Acute Plan to address problem: Improved. No calf tenderness. Patient is on S/C Lovenox. (3) HTN (hypertension) Current Visit: Yes Status: Acute Qualifiers: Hypertension type: essential hypertension Qualified Code(s): I10 - Essential (primary) hypertension Plan to address problem: Management as per primary care. Subjective Date of service: 06/10/16 Interval history: Patient alert,awake. No complaint of chest pain or shortness of breath.O2 satuaration 98% on room air. Objective Vital Signs - 12hr 06/10/16 16:00 Temperature 97.3 F L Pulse Rate [ 104 H From Monitor] Respiratory 20 Rate Blood Pressure 147/84 [Left Arm] Constitutional: no acute distress, alert Eyes: non-icteric ENT: oropharynx moist Neck: supple, no lymphadenopathy Ascultation: Bilateral: clear Cardiovascular: regular rate and rhythm Gastrointestinal: normoactive bowel sounds, soft, non-tender Integumentary: normal Extremities: no cyanosis, no edema Neurologic: non-focal exam, pupils equal and round, CN II-XII normal Psychiatric: mood appropriate CBC and BMP: 06/08/16 20:46 06/10/16 06:38 Abnormal lab findings: Abnormal Labs 06/09/16 06/09/16 06/09/16 00:06 00:23 01:11 Sodium 133 L D Potassium 3.2 L D Chloride 94.2 L Glucose 475 H POC Glucose 486 H 384 H Hemoglobin A1c Calcium 06/09/16 06/09/16 06/09/16 02:53 02:53 03:08 Sodium 135 L Potassium 3.3 L Chloride 96.0 L Glucose 286 H POC Glucose 286 H Hemoglobin A1c 19.1 H Calcium 06/09/16 06/09/16 06/09/16 04:14 05:12 06:15 Sodium Potassium Chloride Glucose POC Glucose 224 H 157 H 119 H Hemoglobin A1c Calcium 06/09/16 06/09/16 06/09/16 08:19 11:56 14:33 Sodium 134 L Potassium Chloride 97.2 L Glucose 138 H POC Glucose 163 H 225 H Hemoglobin A1c Calcium 06/09/16 06/09/16 06/09/16 16:13 19:15 23:51 Sodium 136 L 134 L Potassium Chloride 97.5 L 96.9 L Glucose 183 H POC Glucose 181 H Hemoglobin A1c Calcium 06/10/16 06/10/16 06/10/16 05:51 06:38 20:20 Sodium Potassium Chloride Glucose 331 H POC Glucose 313 H 138 H Hemoglobin A1c Calcium 8.3 L
--- NOTE | 2016-06-11 09:23 | XRay Report ---
PA and lateral chest: There patchy opacities in the right upper lobe somewhat better defined in the lateral projection. The lungs otherwise appear generally clear. Mediastinal contour is unremarkable. Impression: Right upper lobe infiltrate consistent with pneumonia.
--- NOTE | 2016-06-11 12:16 | Discharge Summary ---
Providers - Providers Date of Admission: 06/09/16 00:03 Date of discharge: 06/11/16 Attending physician: TORRIE CARBALLO Primary care physician: LOGISTICS MANAGEMENT SPECIALIST Hospitalization Reason for admission: Nausea,vomiting and abdominal pain/hyperglycemia Condition: Stable Hospital course: Dictated #[id number] Disposition: DC/TX HOME UNDER HOME HEALTH Time spent for discharge: 32 min Core Measure Documentation - Palliative Care Palliative Care/ Comfort Measures: Not Applicable - Core Measures Any of the following diagnoses?: none Exam - Constitutional Vitals: Temp Pulse Resp BP Pulse Ox 97.3 F L 94 H 20 125/79 100 06/11/16 08:30 06/11/16 08:30 06/11/16 08:30 06/11/16 08:30 06/11/16 08:30 General appearance: Present: no acute distress, well-nourished - EENT Eyes: Present: PERRL, EOM intact - Neck Neck: Present: supple, normal ROM - Respiratory Respiratory effort: normal Respiratory: negative: rales, rhonchi, wheezing - Cardiovascular Rhythm: regular Heart Sounds: Present: S1 & S2 - Extremities Extremities: no ischemia, pulses intact, pulses symmetrical Peripheral Pulses: within normal limits - Abdominal General gastrointestinal: Present: soft, non-tender, non-distended, normal bowel sounds - Integumentary Integumentary: Present: clear, warm - Musculoskeletal Musculoskeletal: strength equal bilaterally - Psychiatric Psychiatric: appropriate mood/affect, cooperative - Neurologic Neurologic: CNII-XII intact, moves all extremities Plan Activity: no restrictions Diet: low salt, diabetic Special Instructions: home health RN (for diabetic education and monitoring) Additional Instructions: Patient strongly advised to be complaints of medications diet. Patient may need out patient evaluation as needed by Advertising Dispatch Clerks Supervisor/manager labor relations if she notices edema Follow up with: PRIMARY CARE, [Primary Care Provider] - 3-5 Days EDER AVERY MD [Staff Physician] - 7 Days Prescriptions: ALBUTEROL Inhaler [ProAir HFA Inhaler] 2 puff IH QID PRN #1 inhalation PRN Reason: Shortness Of Breath Insulin Aspart [NovoLOG Flexpen] 3 unit SQ QAC 30 Days Insulin NPH/Regular [NovoLIN 70/30] 15 unit SUB-Q BIDDIAB 30 Days Levofloxacin [Levaquin] 750 mg PO QDAY #7 tablet
[2016-06-11 12:35] LABS: ISTAT Base Excess 3; ISTAT DEVICE 0; ISTAT HCO3 27.7; ISTAT PCO2 47.5 (35-45); ISTAT PH 7.374 (7.35-7.45); ISTAT PO2 76 (80-105); ISTAT SO2 95; ISTAT TCO2 29
[2016-06-11] MEDS: NOVOLOG SUB-Q SCH ×2 (13:02→13:37)
[2016-06-11] MEDS: PEPCID PO SCH ×2 (13:08→14:41)
[2016-06-11 13:48] VITALS: BP 133/98
[2016-06-11] MEDS: ROCEPHIN/NS 1 GM/50 ML 50 ML IV SCH (14:36)
[2016-06-11] MEDS: LOVENOX SUB-Q SCH (14:40)
--- NOTE | 2016-06-12 11:40 | XRay Report ---
PORTABLE CHEST: An AP portable view of the chest demonstrates a normal cardiac contour considering the limits of this technique. The lungs are clear with no evidence of infiltrate, fluid or failure. IMPRESSION: Normal portable chest.
--- NOTE | 2016-06-17 02:28 | Discharge Summary ---
ADMITTING PHYSICIAN: Dr. Yanick Magallon. DISCHARGING PHYSICIAN: Dr. Sharon Crow. FINAL DIAGNOSES: 1. Hyperosmolar diabetic ketosis, improved. 2. Hypokalemia, corrected. 3. History of type 1 diabetes mellitus, stable. 4. Medical noncompliance, counseling done. 5. Generalized edema, improved. TESTS AND PROCEDURES: 1. Chest x-ray is normal study, no evidence of infiltrates, fluid or congestive heart failure. 2. Echocardiogram: Normal left ventricular function, ejection fraction 55% to 60%. No evidence of pulmonary regurgitation, trace mitral regurgitation, mild tricuspid regurgitation, abnormal left ventricular diastolic filling is observed consistent with impaired relaxation, left ventricular chamber size is normal. Wall motion and contractility are within normal limits. CONSULTS: Pulmonary critical, Dr. Patino. BRIEF HISTORY AND HOSPITAL COURSE: Please refer to medical records for details. Very pleasant 26-year-old female patient with significant past medical history of hypertension, diabetes mellitus, gastroparesis, bronchial asthma, gastroesophageal reflux disease, noncompliance with medication, did not see any physician for a long time and not on any medications, was admitted through Emergency Room with generalized body pain, nausea and vomiting as well as generalized edema of the body of 2 months' duration with mild shortness of breath and exertional dyspnea. The patient was initially evaluated and noted to have very high blood sugars and the patient was in hyperosmolar non-ketosis, admitted to ICU, started on insulin drip and frequent measuring of electrolytes. The patient also had uncontrolled hypertension at the time of admission, started on multiple antihypertensives and closely monitored. The patient was stabilized in the ICU. Insulin drip was discontinued, later transferred to the medical floor. The patient had electrolyte imbalances like hypokalemia, which was corrected. In view of the patient's generalized edema, the patient underwent echocardiogram; however, did not reveal any evidence of congestive heart failure, left ventricular function and ejection fraction were within normal limits. The patient also counseled on the importance of adhering to the treatment and the diet plan and diabetic education was counseled during the hospital stay. business services coordinator have evaluated the patient for home health nurse for diabetic education. The patient complained of some cough. Chest x-ray done revealed right upper lobe infiltrates consistent with pneumonia. The patient was started on antibiotics and supportive care. The patient's symptoms significantly improved and on the day of discharge, the patient was comfortable in bed, alert, awake, oriented x 3, not in acute distress. Vital signs and physical examination done by me prior to discharge did not show any new changes. The patient's edema is significantly improved. Blood sugars were dropped to reasonable levels on 70/30 b.i.d. dosing insulin. The patient's hemoglobin A1c was 19.1, also had mild hypoalbuminemia with albumin of 3.1. On the day of discharge, the patient was comfortable, cleared by manager underwriting for discharge on antibiotics and follow up with them in the office. PHYSICAL EXAMINATION: Done by me prior to discharge: HEAD: Atraumatic, normocephalic. NECK: Supple, no lymphadenopathy, JVD or thyromegaly. LUNGS: Bilateral air entry good. No rales. No rhonchi. CARDIOVASCULAR: S1, S2 regular. No murmur. ABDOMEN: Soft, nontender. Bowel sounds are present. EXTREMITIES: Bilateral lower extremities: No edema of feet. No calf asymmetry or calf tenderness. CENTRAL NERVOUS SYSTEM: Nonfocal. DISCHARGE MEDICATIONS: 1. Levaquin 750 mg p.o. daily. 2. Insulin Novolin 70/30 fifteen units subcutaneously b.i.d. 3. NovoLog insulin q. a.c. and at bedtime, moderate sliding scale. 4. Albuterol inhaler 2 puffs q.i.d., p.r.n. for shortness of breath. DISCHARGE DIET: 2 gram sodium, 1800 calorie ADA diet as tolerated. ACTIVITIES: As tolerated. FOLLOWUP: With primary care physician in 3 to 4 days and manager underwriting in 1 week. DISCHARGE INSTRUCTIONS: The patient is strongly advised to be compliant with medications and diet and the patient will be discharged with home health and home health nurse for diabetic education and disease monitoring. The patient also advised to see her primary care physician for further evaluation of her edema with possible nephrology/cardiology evaluation if indicated and recommended by primary care physician if no improvement of symptoms. The patient verbalized understanding of these instructions. FINAL DISPOSITION: Discharged home with home health. CONDITION UPON DISCHARGE: Hemodynamically and clinically stable. I spent 32 minutes coordinating this discharge. JOB# [id number] CY/ANA SPEARS
--- NOTE | 2016-06-19 09:27 | Query- Present on Admission ---
Deaolivier Brewer Date:_06/19/16 Heeler/CDS:Mirta Elizondo/ Lucian Phone#:_[phone] Exercise your independent professional judgment when responding to this query. Questions asked do not imply a particular answer is desired or expected. We greatly appreciate your clarification on this issue. Clinical Documentation States: 26 Y/O Female admitted on 06/09/16 with History of HTN, Diabetes gastroparesis, asthma, GERD non compliant with medication presents with complaints of diffuse body aches, nausea, vomiting. H&P states HONK as diagnosis Discharge summary states history of type 1 diabetes Clinical Findings Show: Hemoglobin A1C: 19.1 Based on the above clinical scenario and your knowledge of the patient's case please clarify if the diagnosis stated below was present on admission: Diagnosis: DIABETES [ ] Diabetic Ketoacidosis [x ] hyperosmolar hyperglycemic nonketotic syndrome [ ] OTHER [ ] Unable to determine Present on admission : [x ] Yes (Y) [ ] Clinically undeterminable(W) [ ] No(N) Please also document response in your Progress Notes and/or Discharge Summary and indicate if the condition was present on admission. ELLISD
== END 2016-06-11 15:35 | disposition home health service (06) | DRG 638 ==
LOC: ED 19:49 → CC1 06-09 00:03 → 3A 06-09 20:16
PROVIDERS: ADMIT Internal Medicine; ATTEND Internal Medicine
PROC: 4A033R1 Measurement of Arterial Saturation, Peripheral, Percutaneous Approach (ICD-10-PCS; principal; 2016-06-11)
DX: E13.00 Other specified diabetes mellitus with hyperosmolarity without nonketotic hyperglycemic-hyperosmolar coma (NKHHC) (principal); N30.00 Acute cystitis without hematuria; E13.43 Other specified diabetes mellitus with diabetic autonomic (poly)neuropathy; K31.84 Gastroparesis; I10 Essential (primary) hypertension; K21.9 Gastro-esophageal reflux disease without esophagitis; J45.909 Unspecified asthma, uncomplicated; E87.6 Hypokalemia; R60.0 Localized edema; Z91.14 Patient's other noncompliance with medication regimen; Z88.1 Allergy status to other antibiotic agents; Z83.3 Family history of diabetes mellitus
CPT/HCPCS: 36415; 36600; 71010; 71020; 80048; 80074; 81001; 82010; 82803; 82805; 82962; 83036; 83690; 83735; 84100; 84703; 85025; 87086; 93306; 96374; 96375; C9113; J0696; J1650; J1815; J1940; J2270; J2405; J7030